=== PATIENT | male | born 1990 | race Hispanic/Latino ===

== ENCOUNTER 2020-08-11 23:36 | Emergency (ER) | payer SELFPAY ==
[~2020-08-11] VITALS: Ht 165.1 cm; Wt 64.0 kg
[2020-08-12 00:36] VITALS: BP 128/64
== END 2020-08-12 01:31 | disposition home or self-care (01) | DRG 125 ==
LOC: ED 23:36
PROC: 0HQ1XZZ Repair Face Skin, External Approach (ICD-10-PCS; principal; 2020-08-12)
DX: S01.111A Laceration without foreign body of right eyelid and periocular area, initial encounter (principal); V48.4XXA Person boarding or alighting a car injured in noncollision transport accident, initial encounter; Y92.009 Unspecified place in unspecified non-institutional (private) residence as the place of occurrence of the external cause